=== PATIENT | female | born 1985 | race Two or more races ===

== ENCOUNTER 2023-05-10 14:38 | Outpatient (OUT) | payer OTHER, MEDICAID, SELFPAY ==
--- NOTE | 2023-05-10 14:47 | US_ITS ---
The [address] [address] Patient Name: JEANNIE JONES MRN: [id number] date: 1985 Sex: F Assigned Patient Location: US Current Patient Location: US Accession/Order Number: [id number] Exam Date: 05/10/2023 15:00 Report Date: 05/10/2023 16:07 At the request of: GAMALIEL CRESPO Procedure: US pelvis transvaginal EXAMINATION: US pelvis transvaginal HISTORY: Menorrhagia With Regular Cycle N92.0 COMPARISON: No relevant comparison available. FINDINGS: The uterus is normal in size, contour and echotexture measuring 8.8 x 5.3 x 4.0 cm. No focal mass The endometrium measures 7.1 mm, normal. The right ovary measures 3.2 x 3.3 x 1.9 cm. Area of anechoic echogenicity measuring 2.0 cm, simple cyst. Normal color and Doppler flow The left ovary measures 2.5 x 1.8 x 1.5 cm. Normal color and Doppler flow No free fluid US/US pelvis transvaginal IMPRESSION: No acute abnormality. Electronically authenticated by: RAMA LUNA Date: 05/10/2023 16:07
[2023-05-10 15:30] LABS: Basophils Percent Auto 0.6 % (0.2-2.0); Eosinophils Absolute Auto 0.1 10^3/uL (0.0-0.7); Hematocrit 39.1 % (36.0-48.0); Hemoglobin 12.7 g/dL (12.0-16.0); Immature Granulocytes Abs Auto 0.01 10^3/uL (0.00-0.03); Immature Granulocytes Pct Auto 0.1 % (0.0-0.5); Lymphocytes Absolute Auto 2.2 10^3/uL (1.2-3.8); Mean Corpuscular HGB Conc 32.5 g/dL (29.9-35.2); Mean Corpuscular Hemoglobin 29.7 pg (26.7-34.0); Mean Corpuscular Volume 91.6 fL (81.0-99.0); Mean Platelet Volume 8.9 fL (9.5-13.5); Monocytes Absolute Auto 0.5 10^3/uL (0.3-0.8); Monocytes Percent Auto 6.5 % (1.7-12.0); Neutrophils Absolute Auto 4.4 10^3/uL (1.4-6.5); Neutrophils Percent Auto 60.8 % (43.0-75.0); Platelet Count 477 10^3/uL (150-450); Red Blood Count 4.27 10^6/uL (4.20-5.40); Red Cell Distribution Width 14.1 % (11.0-15.0); White Blood Count 7.2 10^3/uL (4.0-11.0)
[2023-05-10 15:52] LABS: INR 0.95; Partial Thromboplastin Time 27.3 sec (22.3-36.2); Prothrombin Time 10.1 sec (9.0-11.6)
[2023-05-10 16:05] LABS: Estimated Average Glucose 111 mg/dL; Glycohemoglobin A1C 5.5 % (4.5-6.2)
[2023-05-10 16:14] LABS: Free T4 0.91 ng/dL (0.76-1.46)
[2023-05-10 16:20] LABS: HCG Quantitative <1 mIU/mL; Thyroid Stimulating Hormone 0.688 uIU/mL (0.358-3.740)
== END 2023-05-10 14:39 | disposition home or self-care (01) ==
PROVIDERS: Visit Provider Obstetrics & Gynecology
DX: N92.0 Excessive and frequent menstruation with regular cycle (principal)
CPT/HCPCS: 36415; 76830; 83036; 84439; 84443; 84702; 85025; 85610; 85730

== ENCOUNTER 2024-12-25 07:44 | Outpatient (OUT) | payer OTHER, SELFPAY ==
--- OUTSIDE RECORDS SUMMARY | 2024-12-25 07:50 | XMS_ITS | CCD ---
Author Organization [facility] CliniSypr Care Team Providers Care Visual And Stock Associate Name Role Phone AMI LOPEZ Admitting Unavailable AMI LOPEZ Attending Unavailable SELF, REFERRED Referring Unavailable SELF, REFERRED Primary Care Unavailable MISC, DOCTOR Attending Unavailable MISC, DOCTOR Admitting Unavailable DIVINE COLVIN Attending Unavailable CHERIE, GAMALIEL Attending Unavailable HOU, STEVIE Alfaro Attending Unavailable CHERIE, GAMALIEL Attending Unavailable KARLEE, MAKAYLA F Attending Unavailable KARLEE, MAKAYLA F Attending Unavailable HOU, STEVIE Alfaro Attending Unavailable KARLEE, MAKAYLA Thornton Attending Unavailable KARLEE, MAKAYLA Thornton Attending Unavailable TOMAS, NICHOLAS Fletcher Attending Unavailable TOMAS, NICHOLAS Fletcher Referring Unavailable WONDERLY, MAKAYLA B Primary Care Unavailable TOMAS, NICHOLAS Fletcher Admitting Unavailable TOMAS, NICHOLAS Fletcher Attending Unavailable WONDERLY, MAKAYLA B Referring Unavailable WONDERLY, MAKAYLA B Primary Care Unavailable NIENBERG, JOSE RAUL Anguiano Attending Unavailable KARLEE, MAKAYLA Referring Unavailable KARLEE, MKAAYLA Primary Care Unavailable TOMAS, NICHOLAS Fletcher Attending Unavailable TOMAS, NICHOLAS Fletcher Referring Unavailable KARLEE, MAKAYLA Primary Care Unavailable TOMAS, NICHOLAS Fletcher Admitting Unavailable TOMAS, NICHOLAS Fletcher Attending Unavailable KARLEE, MAKAYLA Referring Unavailable KARLEE, MAKAYLA Primary Care Unavailable KARLEE, [facility] Primary Care Unavailable YANA PATIÑO Attending Unavailable NIENBERGJOSE RAUL Attending Unavailable WONDERLY, MAKAYLA B Referring Unavailable WONDERLY, MAKAYLA B Primary Care Unavailable KARLEE, [facility] Primary Care Unavailable TERE MOFFETT Attending Unavailable KOFFI FUENTES Attending UnavailKOFFI Estrada Referring Unavaildelilah WILLETT MAKAYLA Primary Care Unavailable Makayla Fischer MD Primary Care Provider Makayla Willett MD Primary Care Provider Allergies Allergy Classification Reported Allergen(s) Allergy Type Date of Onset Reaction(s) Facility (2 sources) Penicillins; Translations: [PENICILLINS] Drug allergy (disorder) 7 [facility] Repository (3 sources) Penicillins Propensity to adverse reactions to drug 7 [facility] [employer] [facility] Medications Current Medications Medication Drug Class(es) Dates Sig (Normalized) Sig (Original) cetirizine hydrochloride 10 mg chewable tablet (2 sources) Histamine-1 Receptor Antagonist cetirizine (ZyrTEC) 10 MG chewable tablet Chew 1 tablet (10 mg total) and swallow in the morning. Active naproxen 500 mg delayed release oral tablet (3 sources) Nonsteroidal Anti-inflammatory Drug take 1 tablet by mouth in the morning, then take 1 tablet by mouth at mealtime naproxen (EC NAPROSYN) 500 mg EC tablet Take 1 tablet (500 mg total) by mouth in the morning and 1 tablet (500 mg total) in the evening. Take with meals. Active ondansetron 4 mg disintegrating oral tablet (2 sources) Serotonin-3 Receptor Antagonist Start: 05-21-2023 take 1 tablet by mouth every eight hours as needed for nausea ondansetron ODT (ZOFRAN ODT) 4 mg disintegrating tablet Dissolve 1 tablet (4 mg total) on tongue every 8 (eight) hours as needed for nausea for up to 10 doses. 10 tablet 05/21/2023 Active Problems Active Problems Problem Classification Problem Date Documented Da te Episodic/Chronic Cardiac dysrhythmias (3 sources) Palpitations; Translations: [Palpitations] 10-29-2016 Episodic Conditions associated with dizziness or vertigo (3 sources) Dizziness; Translations: [Dizziness and giddiness] 10-29-2016 Episodic Nonspecific chest pain (3 sources) Chest pain; Translations: [Chest pain, unspecified] 10-29-2016 Episodic Other upper respiratory disease (1 source) Pain in throat Onset: 02-25-2024 Episodic Other upper respiratory infections (1 source) Acute upper respiratory infection, unspecified; Translations: [Acute upper respiratory infection, unspecified] Onset: 02-25-2024 Episodic Spondylosis; intervertebral disc disorders; other back problems (9 sources) Spondylosis without myelopathy or radiculopathy, thoracic region; Translations: [Thoracic spondylosis without myelopathy] Onset: 03-05-2023 04-23-2023 Chronic Spondylosis; intervertebral disc disorders; other back problems (1 source) Backache Onset: 01-16-2024 Episodic Unclassified (1 source) Earache Onset: 02-25-2024 Past or Other Problems Problem Classification Problem Date Documented Da te Episodic/Chronic Mood disorders (3 sources) Mood disorders Onset: 07-26-2021 07-26-2021 Nausea and vomiting (1 source) Vomiting Onset: 05-21-2023 Episodic Noninfectious gastroenteritis (1 source) Noninfective gastroenteritis and colitis, unspecified; Translations: [Noninfective gastroenteritis and colitis, unspecified] Onset: 05-21-2023 Episodic Other circulatory disease (3 sources) Orthostatic hypotension; Translations: [Orthostatic hypotension] Onset: 12-15-2019 12-15-2019 Episodic Other gastrointestinal disorders (1 source) Diarrhea Onset: 05-21-2023 Episodic Syncope (3 sources) Vasovagal syncope; Translations: [Syncope and collapse] Onset: 12-15-2019 12-15-2019 Episodic Results Test Name Value Interpretation Reference Range Facil ity RAPID STREP SCR NURSINGon S. pyogenes Ag EIA Ql (Throat) Negative Normal NEG [facility] Comment on above: Performed By: #### C BCA, CMP, 3040-3, 15548-9 #### [facility] ([id number]) [address] [place] [address], [place] [address] SARS/FLU A+B/RSV by NAAT/Mol ecularon 02-25-2024 SARS/FLU A+B/RSV by NAAT/Molecular FLU A PCR Negative (qualifier value) FLU B PCR Negative (qualifier value) RSV by PCR Negative (qualifier value) SARS CoV 2 Not detected (qualifier value) NOTE The Xpert Xpress SARS-CoV-2/Flu/RSV Plus test is a rapid, multiplexed real-time RT-PCR test intended for the simultaneous qualitative detection and differentiation of SARS-CoV-2, influenza A, influenza B and respiratory syncytial virus (RSV) viral RNA from individuals suspected of respiratory viral infection consistent with COVID-19 by their healthcare provider. This test has not been validated in asymptomatic patients. The Xpert Xpress SARS-CoV-2 test is intended for use by qualified and trained operators who are performing tests using either [employer] or [employer] systems and is limited to laboratories that meet the CLIA requirements to perform high and moderate complexity tests. The Xpert Xpress SARS-CoV-2/Flu/RSV Plus is only for use under the Food and Drug Administration's Emergency Use Authorization. Results are for the simultaneous detection and differentiation of SARS-CoV-2, influenza A, influenza B and RSV nucleic acids in clinical specimens. SARS-CoV-2, influenza A, influenza B and RSV RNA identified by this test are generally detectable in upper respiratory samples during the acute phase of infection. Positive results are indicative of the presence of the identified virus, but do not rule out bacterial infection or co-infection with other pathogens not detected by this test. Clinical correlation with patient history and other diagnostic information is necessary to determine patient infection status. The agent detected may not be the definite cause of disease. Negative results do not preclude SARS-CoV-2, influenza A, influenza B and RSV infection and should not be used as the sole basis for treatment or other patient management decisions. Negative results must be combined with clinical observations, patient history and epidemiological information. An Invalid result may occur with specimen-associated inhibition unable to be resolved with specimen repeat. Fact Sheet for Healthcare Providers: https://www.fda.gov/m edia/166507/download Fact Sheet for Patients: https://www.fda.gov/m edia/371194/download Normal [facility] Comment on above: Performed By: #### C OVFLR #### [facility] ([id number]) [address] [place] [address] 82342 CBC AND AUTO DIFFon 05-21-19 24 ABSOLUTE BASOPHIL 0.0 X10E9/L Normal 0.0-0.2 [facility] Comment on above: Performed By: #### C BCA, CMP, 3040-3, 89398-0 #### [facility] ([id number]) [address] [place] [address] 29674 ABSOLUTE NEUTROPHIL 3.6 X10E9/L Normal 1.5-6.6 [facility] Comment on above: Performed By: #### C BCA, CMP, 3040-3, 16117-4 #### [facility] ([id number]) [address] [place] [address] 96546 Basophils/100 WBC (Bld) 0.3 % Normal [facility] Comment on above: Performed By: #### C CARLEEN CMP, 3039-05, #### [facility] ([id number]) [address] [place] [address] 74551 Eosinophils (Bld) [#/Vol] 0.1 10*3/uL Normal 0.0-0.4 [facility] Comment on above: Performed By: #### C CARLEEN, CMP, 3039-05, #### [facility] ([id number]) [address] [place] [address] 35063 Eosinophils/100 WBC (Bld) 1.4 % Normal [facility] Comment on above: Performed By: #### Kelly DURANT CMP, 3039-05, #### [facility] ([id number]) [address] [place] [address] 02169 Erythrocyte distribution width (RBC) [Ratio] 14.8 % Normal 11.5-15.0 [facility] Comment on above: Performed By: #### Kelly DURANT CMP, 3039-05, #### [facility] ([id number]) [address] [place] [address] 53193 Hematocrit (Bld) [Volume fraction] 39.5 % Normal 35-47 [facility] Comment on above: Performed By: #### C CARLEEN, CMP, 3039-05, #### [facility] ([id number]) [address] [place] [address] 58330 Hemoglobin (Bld) [Mass/Vol] 13.4 g/dL Normal 11.7-15.5 [facility] Comment on above: Performed By: #### C CARLEEN CMP, 3039-05, #### [facility] ([id number]) [address] [place] [address] Lymphocytes (Bld) [#/Vol] 1.1 10*3/uL Normal 1.0-3.5 [facility] Comment on above: Performed By: #### Kelly DURANT CMP, 3, #### [facility] ([id number]) [address] [place] [address] 12709 Lymphocytes/100 WBC (Bld) 21.3 % Normal [facility] Comment on above: Performed By: #### Kelly DURANT CMP, 3039-05, #### [facility] ([id number]) [address] [place] [address] 72501 MCH (RBC) [Entitic mass] 29.8 pg Normal 27-34 [facility] Comment on above: Performed By: #### Kelly DURANT CMP, 3039-05, #### [facility] ([id number]) [address] [place] [address] 56020 MCHC (RBC) [Mass/Vol] 33.9 g/dL Normal 32-36 [facility] Comment on above: Performed By: #### Kelly DURANT CMP, 3039-05, #### [facility] ([id number]) [address] [place] [address] 55782 MCV (RBC) [Entitic vol] 88 fL Normal 80-100 [facility] Comment on above: Performed By: #### Kelly DURANT, CMP, 3039-05, #### [facility] ([id number]) [address] [place] [address] 70622 Monocytes (Bld) [#/Vol] 0.4 10*3/uL Normal 0-0.9 [facility] Comment on above: Performed By: #### Kelly DURANT, CMP, 3039-05, #### [facility] ([id number]) [address] [place] [address] 98493 Monocytes/100 WBC (Bld) 7.6 % Normal [facility] Comment on above: Performed By: #### Kelly DURANT, CMP, 0-3, #### [facility] ([id number]) [address] [place] [address] 28762 Neutrophils/100 WBC (Bld) 69.4 % Normal [facility] Comment on above: Performed By: #### C CARLEEN, CMP, 3, #### [facility] ([id number]) [address] [place] [address] 79871 Platelet mean volume (Bld) [Entitic vol] 7.5 fL Normal 7-12 [facility] Comment on above: Performed By: #### Kelly DURANT, CMP, 3039-05, #### [facility] ([id number]) [address] [place] [address] 85686 Platelets (Bld) [#/Vol] 404 10*3/uL Normal 150-450 [facility] Comment on above: Performed By: #### Kelly DURANT, CMP, 3039-05, #### [facility] ([id number]) [address] [place] [address] 68711 RBC COUNT 4.50 X10E12/L Normal 3.80-5.20 [facility] Comment on above: Performed By: #### Kelly BCA, CMP, 3, #### [facility] ([id number]) [address] [place] [address] 01314 WBC (Bld) [#/Vol] 5.2 10*3/uL Normal 4.0-11.0 [facility] Comment on above: Performed By: #### Kelly DURANT, CMP, 3, #### [facility] ([id number]) [address] [place] [address] 67159 COMPREHENSIVE METABOLIC PANE Omar 05-21-2023 Albumin [Mass/Vol] 4.1 g/dL Normal 3.2-5.3 [facility] Comment on above: Performed By: #### C BCA, CMP, 3040-3, #### [facility] ([id number]) [address] [place] [address] 08145 ALP [Catalytic activity/Vol] 55 U/L Normal 39-130 [facility] Comment on above: Performed By: #### C BCA, CMP, 3040-3, #### [facility] ([id number]) [address] [place] [address] 33299 ALT [Catalytic activity/Vol] 23 U/L Normal 0-31 [facility] Comment on above: Performed By: #### C BCA, CMP, 03, #### [facility] ([id number]) [address] [place] [address] 16542 Anion gap [Moles/Vol] 6 mmol/L Normal 5-15 [facility] Comment on above: Performed By: #### C BCA, CMP, 3040-3, #### [facility] ([id number]) [address] [place] [address] 00335 AST [Catalytic activity/Vol] 22 U/L Normal 0-41 [facility] Comment on above: Performed By: #### C BCA, CMP, 30403, #### [facility] ([id number]) [address] [place] [address] 71867 Bilirubin [Mass/Vol] 0.7 mg/dL Normal 0.3-1.2 [facility] Comment on above: Performed By: #### C BCA, CMP, 3040-3, #### [facility] ([id number]) [address] [place] [address] 42807 Calcium [Mass/Vol] 8.4 mg/dL Low 8.5-10.5 [facility] Comment on above: Performed By: #### C TL DURANT, 3, 74169-2 #### [facility] ([id number]) [address] [place] [address] 78126 Chloride [Moles/Vol] 105 mmol/L Normal 98-109 [facility] Comment on above: Performed By: #### C TL DURANT, 3039-05, #### [facility] ([id number]) [address] [place] [address] 82159 CO2 [Moles/Vol] 24 mmol/L Normal 22-32 [facility] Comment on above: Performed By: #### C TL DURANT, 3039-05, #### [facility] ([id number]) [address] [place] [address] 00328 Creatinine [Mass/Vol] 0.47 mg/dL Normal 0.40-1.00 [facility] Comment on above: Result Comment: METH OD TRACEABLE TO IDMS STANDARD Performed By: #### C TL DURANT, 3039-05, 46749-9 #### [facility] ([id number]) [address] [place] [address] 63942 eGFR (CKD-EPI) NON-RACE DEPENDENT >90 Normal >59 [facility] Comment on above: Result Comment: Reported eGFR is based on the CKD-EPI 2020 equation that does not use a race coefficient. Performed By: #### C TL DURANT, 3039-05, 86617-4 #### [facility] ([id number]) [address] [place] [address] 61705 Glucose [Mass/Vol] 97 mg/dL Normal 65-99 [facility] Comment on above: Performed By: #### C BCA, CMP, 3040-3, 72780-3 #### [facility] ([id number]) [address] [place] [address] 14877 Potassium [Moles/Vol] 3.1 mmol/L Low 3.5-5.0 [facility] Comment on above: Performed By: #### C BCA, CMP, 3040-3, 01608-6 #### [facility] ([id number]) [address] [place] [address] 30476 Protein [Mass/Vol] 7.6 g/dL Normal 6.0-8.0 [facility] Comment on above: Performed By: #### C BCA, CMP, 03, 02899-5 #### [facility] ([id number]) [address] [place] [address] 38825 Sodium [Moles/Vol] 135 mmol/L Normal 134-146 [facility] Comment on above: Performed By: #### C BCA, CMP, 3040-3, 61093-1 #### [facility] ([id number]) [address] [place] [address] 69405 Urea nitrogen [Mass/Vol] 9 mg/dL Normal 5-23 [facility] Comment on above: Performed By: #### C BCA, CMP, 3040-3, 06795-6 #### [facility] ([id number]) [address] [place] [address] ABDOMEN AND PELVIS W CONT on 05-21-2023 CT ABDOMEN AND PELVIS W CONT CT ABDOMEN AND PELVIS W CONT CLINICAL INFORMATION: Abdominal pain, acute, nonlocalized COMPARISON: February 06, 2013 PROCEDURE: Routine CT abdomen and pelvis obtained after the uncomplicated intravenous administration of contrast material. Multiplanar reformats obtained from the axial data. Automated exposure control was utilized. FINDINGS: Lung bases show no acute findings No free air or free fluid Uterus and adnexa show no acute findings but not well assessed without oral contrast Appendix and terminal ileum appropriate Liver shows no acute findings Gallbladder wall appears mildly thickened which is nonspecific Spleen pancreas adrenal glands and kidneys grossly unremarkable within limitations of no oral contrast No evidence for small bowel obstruction IMPRESSION: No acute findings. If you have high clinical suspicion for occult bowel process in view of the nausea vomiting and diarrhea consider MR enterography and/or CT enterography, or GI consultation. All CT scans at this facility use dose modulation, iterative reconstruction, and/or weight based dosing when appropriate to reduce radiation dose to as low as reasonably achievable. Finalized by Norman Madden MD on 05/21/2023 6:46 PM Normal [facility] HCG ( test) Ql (U)o n 05-21-2023 Beta HCG ( test) Ql (U) Negative Normal NEG [facility] Comment on above: Performed By: #### 2 106-3 #### [facility] ([id number]) [address] [place] [address] 11193 LIPASEon 05-21-2023 Lipase [Catalytic activity/Vol] 33 U/L Normal 17-40 [facility] Comment on above: Performed By: #### C CARLEEN CMP, 3040-3, 86763-8 #### [facility] ([id number]) [address] [place] [address] 61635 Lactate (P lacho) [Moles/Vol]o n 05-21-2023 LACTATE W/REFLEX 0.9 mmol/L Normal 0.4-2.0 [facility] Comment on above: Result Comment: Result did not trigger repeat Lactate, re-order if needed. Performed By: #### 3 2133-1 #### [facility] ([id number]) [address] [place] [address] 62164 MAGNESIUMon 05-21-2023 Magnesium [Mass/Vol] 2.3 mg/dL Normal 1.8-2.6 [facility] Comment on above: Performed By: #### C BCA, CMP, 3040-3, 42651-7 #### [facility] ([id number]) [address] [place] [address] 91216 SARS/FLU A+B/RSV by NAAT/Mol [facility] 05-21-2023 SARS/FLU A+B/RSV by NAAT/Molecular FLU A PCR Negative (qualifier value) FLU B PCR Negative (qualifier value) RSV by PCR Negative (qualifier value) SARS CoV 2 Not detected (qualifier value) NOTE The Xpert Xpress SARS-CoV-2/Flu/RSV Plus test is a rapid, multiplexed real-time RT-PCR test intended for the simultaneous qualitative detection and differentiation of SARS-CoV-2, influenza A, influenza B and respiratory syncytial virus (RSV) viral RNA from individuals suspected of respiratory viral infection consistent with COVID-19 by their healthcare provider. This test has not been validated in asymptomatic patients. The Xpert Xpress SARS-CoV-2 test is intended for use by qualified and trained operators who are performing tests using either [employer] or [employer] systems and is limited to laboratories that meet the CLIA requirements to perform high and moderate complexity tests. The Xpert Xpress SARS-CoV-2/Flu/RSV Plus is only for use under the Food and Drug Administration's Emergency Use Authorization. Results are for the simultaneous detection and differentiation of SARS-CoV-2, influenza A, influenza B and RSV nucleic acids in clinical specimens. SARS-CoV-2, influenza A, influenza B and RSV RNA identified by this test are generally detectable in upper respiratory samples during the acute phase of infection. Positive results are indicative of the presence of the identified virus, but do not rule out bacterial infection or co-infection with other pathogens not detected by this test. Clinical correlation with patient history and other diagnostic information is necessary to determine patient infection status. The agent detected may not be the definite cause of disease. Negative results do not preclude SARS-CoV-2, influenza A, influenza B and RSV infection and should not be used as the sole basis for treatment or other patient management decisions. Negative results must be combined with clinical observations, patient history and epidemiological information. An Invalid result may occur with specimen-associated inhibition unable to be resolved with specimen repeat. Fact Sheet for Healthcare Providers: https://www.fda.gov/m edia/369078/download Fact Sheet for Patients: https://www.fda.gov/m edia/763560/download [facility] Comment on above: Performed By: #### C OVFLR #### [facility] ([id number]) [address] [place] [address], [place] [address] URN MACROSCOPIC NURon 2023 BILIRUBIN EVY Negative Normal NEG [facility] Comment on above: Performed By: #### N UM #### [facility] ([id number]) [address] [place] [address] [place] [address] BLOOD/HGB EVY Small Abnormal NEG [facility] Comment on above: Performed By: #### N UM #### [facility] ([id number]) [address] [place] [address] [place] [address] GLUCOSE EVY Negative Normal NEG [facility] Comment on above: Performed By: #### N UM #### [facility] ([id number]) [address] [place] [address] [place] [address] KETONES EVY Negative Normal NEG [facility] Comment on above: Performed By: #### N UM #### [facility] ([id number]) [address] [place] [address] [place] [address] LEUKOCYTE ESTERASE EVY Negative Normal NEG [facility] Comment on above: Performed By: #### N UM #### [facility] ([id number]) [address] [place] [address] [place] [address] NITRITE EVY Negative Normal NEG [facility] Comment on above: Performed By: #### N UM #### [facility] ([id number]) [address] [place] [address] [place] [address] PH EVY 6.0 Normal 5.0-8.5 [facility] Comment on above: Performed By: #### N UM #### [facility] ([id number]) [address] [place] [address], [place] [address] PROTEIN EVY Negative Normal NEG [facility] Comment on above: Performed By: #### N UM #### [facility] ([id number]) [address] [facility], [place] [address] SPECIFIC GRAVITY EVY 1.010 Normal 1.003-1.035 [facility] Comment on above: Performed By: #### N UM #### [facility] ([id number]) [address] [facility], [place] [address] UROBILINOGEN EVY 2.0 eu/dL High <1.1 [facility] Comment on above: Performed By: #### N UM #### [facility] ([id number]) [address] [facility], [place] [address] MR THORACIC SPINE WO CONTRAS Ton 01-21-2023 MR THORACIC SPINE WO CONTRAST EXAMINATION: MR THORACIC SPINE WO CONTRAST HISTORY: Thoracic pain COMPARISON: Thoracic spine radiographs December 31, 2022 TECHNIQUE: Multiplanar multisequence MRI of the thoracic spine was performed Without contrast. FINDINGS: The thoracic spinal cord is normal in signal and morphology. No focal cord signal abnormality. Mild levoscoliosis. The vertebral body heights are well maintained. No aggressive bone marrow signal abnormality. No significant disc bulge, spinal canal stenosis or neuroforaminal stenosis. Visualized paravertebral soft tissues are grossly unremarkable. The gallbladder is filled with gallstones. IMPRESSION: No significant disc bulge. No high-grade neural foraminal or spinal canal stenosis. Normal signal and morphology of the thoracic spinal cord. Cholelithiasis. ELECTRONICALLY SIGNED BY: Gadiel Dominique, DO Normal Not Available *RAPID FLU AANDB BY BOBBY Yan 05-24-2019 *RAPID FLU AANDB BY MOLECULAR Clinical Report: (D) Specimen: NASAL SWAB Collected: 05/24/2019 09:24 Status: Final Last Updated: 05/24/2019 09:50 FLUA RNA (Final) Negative FLUB RNA (Final) Positive for Influenza B Normal [facility] Comment on above: Performed By: #### 3 1018 #### [facility] [address] [place] [address], [facility] CBC W/DIFFon 05-24-2019 ABS BASOPHILS 0.0 10*3/uL Normal 0.0-0.2 [facility] Comment on above: Performed By: #### 5 0103 #### [facility] [address] [place] [address], [facility] ABS IMM GRANS 0.0 10*3/uL Normal 0.0-0.2 The [facility] Comment on above: Performed By: #### 5 0103 #### [facility] [address] [place] [address], [facility] ABS NEUTROPHILS 6.1 10*3/uL Normal 1.6-7.6 The [facility] Comment on above: Performed By: #### 5 0103 #### [facility] [address] [place] [address], [facility] Basophils/100 WBC (Bld) 0.2 % Normal 0.0-1.0 [facility] Comment on above: Performed By: #### 5 0103 #### [facility] [address] [place] [address], [facility] Eosinophils (Bld) [#/Vol] 0.0 10*3/uL Normal 0.0-0.5 [facility] Comment on above: Performed By: #### 5 0103 #### [facility] [address] [place] [address], [facility] Eosinophils/100 WBC (Bld) 0.0 % Normal 0.0-6.0 [facility] Comment on above: Performed By: #### 5 0103 #### [facility] [address] Erythrocyte distribution width (RBC) [Ratio] 13.6 % Normal 11.5-15.0 [facility] Comment on above: Performed By: #### 5 0103 #### [facility] [address] [place] [address], [facility] Hematocrit (Bld) [Volume fraction] 38.6 % Normal 36.0-45.0 [facility] Comment on above: Performed By: #### 5 0103 #### [facility] [address] [place] [address], [facility] Hemoglobin (Bld) [Mass/Vol] 12.7 g/dL Normal 12.0-15.0 [facility] Comment on above: Performed By: #### 5 3 #### [facility] [address] [place] [address], [facility] IMMATURE GRANS 0.2 % Normal 0.0-1.0 The [facility] Comment on above: Performed By: #### 3 #### [facility] [address] [place] [address], [facility] Lymphocytes (Bld) [#/Vol] 1.4 10*3/uL Normal 1.2-4.0 [facility] Comment on above: Performed By: #### 5 3 #### [facility] [address] Lymphocytes/100 WBC (Bld) 17.0 % Low 20.0-45.0 [facility] Comment on above: Performed By: #### 5 3 #### [facility] [address] [place] [address], [facility] MCH (RBC) [Entitic mass] 29.3 pg Normal 27.0-33.0 [facility] Comment on above: Performed By: #### 5 3 #### [facility] [address] [place] [address], [facility] MCHC (RBC) [Mass/Vol] 32.9 g/dL Normal 32.0-35.0 [facility] Comment on above: Performed By: #### 5 3 #### [facility] [address] [place] [address], [facility] MCV (RBC) [Entitic vol] 88.9 fL Normal 82.0-98.0 [facility] Comment on above: Performed By: #### 5 0103 #### [facility] [address] [place] [address], [facility] Monocytes (Bld) [#/Vol] 0.5 10*3/uL Normal 0.1-1.0 [facility] Comment on above: Performed By: #### 102 #### [facility] [address] [place] [address], [facility] MONOS 6.6 % Normal 5.0-12.0 [facility] Comment on above: Performed By: #### 102 #### [facility] [address] [facility] [place] [address], [facility] Neutrophils/100 WBC (Bld) 76.0 % High 40.0-72.0 [facility] Comment on above: Performed By: #### 102 #### [facility] [address] [place] [address], [facility] Nucleated RBC/100 WBC (Bld) [Ratio] 0 % Normal 0-0 [facility] Comment on above: Performed By: #### 102 #### [facility] [address] [place] [address], [facility] PLAT CNT 314 10*3/uL Normal 150-400 The [facility] Comment on above: Performed By: #### 102 #### [facility] [address] [place] [address], [facility] RBC (Bld) [#/Vol] 4.34 10*6/uL Normal 3.80-5.00 The [facility] Comment on above: Performed By: #### 102 #### [facility] [address] [facility] [place] [address], [facility] WBC (Bld) [#/Vol] 8.02 10*3/uL Normal 4.00-10.60 The [facility] Comment on above: Performed By: #### 102 #### [facility] [address] [place] [address], [facility] COMP METABOLIC PANELon 05-24 Albumin [Mass/Vol] 4.3 g/dL Normal 3.5-5.7 [facility] Comment on above: Performed By: #### 0 0121 #### [facility] [address] [place] [address], [facility] ALKALINE PHOSPH 39 IU/L Normal 34-104 The [facility] Comment on above: Performed By: #### 0 0121 #### [facility] [address] [place] [address], [place] ALT [Catalytic activity/Vol] 22 U/L Normal 7-52 [facility] Comment on above: Performed By: #### 0 0121 #### [facility] [address] [place] [address], [facility] AST [Catalytic activity/Vol] 20 U/L Normal 13-39 [facility] Comment on above: Performed By: #### 0 0121 #### [facility] [address] [place] [address], [place] Bilirubin [Mass/Vol] 0.6 mg/dL Normal 0.3-1.0 [facility] Comment on above: Performed By: #### 0 0121 #### [facility] [address] [place] [address], [facility] Calcium [Mass/Vol] 9.1 mg/dL Normal 8.6-10.3 The [facility] Comment on above: Performed By: #### 0 0121 #### [facility] [address] [place] [address], [place] Chloride [Moles/Vol] 104 mmol/L Normal 98-107 [facility] Comment on above: Performed By: #### 0 0121 #### [facility] [address] [place] [address], [place] CO2 [Moles/Vol] 25 mmol/L Normal 21-31 The [facility] Comment on above: Performed By: #### 0 0121 #### [facility] [address] [place] [address], [facility] Creatinine [Mass/Vol] 0.58 mg/dL Low 0.60-1.20 [facility] Comment on above: Performed By: #### 0 0121 #### [facility] [address] [place] [address], [facility] GFR/1.73 sq M predicted among blacks MDRD (S/P/Bld) [Vol rate/Area] mL/min/{1.73_m2} Normal >60 [facility] Comment on above: Performed By: #### 0 0121 #### [facility] [address] [place] [address], [facility] GFR/1.73 sq M predicted among non-blacks MDRD (S/P/Bld) [Vol rate/Area] mL/min/{1.73_m2} Normal >60 [facility] Comment on above: Performed By: #### 0 0121 #### [facility] [address] [place] [address], [place] Glucose [Mass/Vol] 96 mg/dL Normal 70-100 The [facility] Comment on above: Performed By: #### 0 0121 #### [facility] [address] [place] [address], [facility] Potassium [Moles/Vol] 3.7 mmol/L Normal 3.5-5.1 [facility] Comment on above: Performed By: #### 0 0121 #### [facility] [address] [place] [address], [facility] Protein [Mass/Vol] 7.0 g/dL Normal 6.0-8.3 The [facility] Comment on above: Performed By: #### 0 0121 #### [facility] [address] [facility] [place] [address], [facility] Sodium [Moles/Vol] 138 mmol/L Normal 136-145 [facility] Comment on above: Performed By: #### 0 0121 #### [facility] [address] [facility] [place] [address], [facility] Urea nitrogen [Mass/Vol] 6 mg/dL Low 7-25 [facility] Comment on above: Performed By: #### 0 0121 #### [facility] [address] [place] [address], [facility] CT BRAIN WO CONTRASTon 05-24 CT BRAIN WO CONTRAST [facility] Department of Radiology [address] [place] [phone] Patient Name: JEANNIE JONES : 1985 Sex: F Age: Race: Other Pt. Location: [facility] Patient Status: E Ordered Date: 05/24/2019 9:20:00 AM Completed Date: 05/24/2019 10:10 AM Requesting Provider: AMI LOPEZ Attending Provider: AMI LOPEZ Report Copy To: Signs & Symptoms: Dizziness(vertigo) History: See Comments Comments: Bleed Exam: CT BRAIN WO CONTRAST CT BRAIN WO CONTRAST 05/24/2019 10:10 AM CLINICAL INDICATIONS: Dizziness(vertigo) TECHNOLOGIST COMMENTS: Patient has weakness and vertigo. Tested positive for flu QUESTION FOR THE RADIOLOGIST: Jose PROTOCOL: Axial CT images of the head were obtained without IV contrast. TECHNIQUE: Multidetector CT axial slices of the brain without IV contrast. Multiplanar reformats were performed and viewed on a separate workstation and reviewed to further define anatomy and possible pathology. COMPARISON: None. FINDINGS: No shift of midline structures, intracranial hemorrhage, or mass effect. Delaney-white differentiation intact. Size and configuration of the ventricles and basal cisterns are normal. No acute ischemia. Calvarium, skull base, bony orbit are normal. Mastoids nonopacified. Mild mucosal thickening in the ethmoid cells. Remaining visualized paranasal sinuses unremarkable. IMPRESSION: * No acute intracranial abnormality. * Mild mucosal disease in the ethmoids. All CT scans at this facility use dose modulation, iterative reconstruction, and/or weight based dosing when appropriate to reduce radiation dose to as low as reasonably achievable Approved by:Diane Barreto05/24/2019 10:19 AM. I, Ida Hoskins,have reviewed the imagers and reports Electronically signed: Ida Hoskins. Transcribed by: [email or web address], User Resident: DIANE [email or web address] Electronically Signed by: IDA HOSKINS @ 05/24/2019 10:27 AM I personally read this/these film(s) with this resident Normal [facility] Comment on above: Order Comment: Bleed CTA HEADon 05-24-2019 CTA HEAD [facility] Department of Radiology [address] [place] [phone] Patient Name: JEANNIE JONES : 1985 Sex: F Age: Race: Other Pt. Location: [facility] Patient Status: E Ordered Date: 05/24/2019 9:10:00 AM Completed Date: 05/24/2019 10:10 AM Requesting Provider: AMI LOPEZ Attending Provider: AMI LOPEZ Report Copy To: Signs & Symptoms: Dizziness(vertigo) History: See Comments Comments: Bleed Exam: CTA HEAD CTA HEAD 05/24/2019 10:10 AM CLINICAL INDICATIONS: Dizziness(vertigo) TECHNOLOGIST COMMENTS: Patient has weakness and vertigo. Tested positive for flu QUESTION FOR THE RADIOLOGIST: Bleed PROTOCOL: Axial CT angiography images were obtained with IV contrast. CONTRAST: Contrast: OMNIPAQUE 350 (LOCM), 100 milliliter, Intravenous TECHNIQUE: Multi-detector CT angiography axial slices of the head were obtained before and during intravenous administration of IV contrast material. Sagittal, coronal, and 3-D reconstructions were performed and viewed on a separate workstation. COMPARISON: None. FINDINGS: Intracranial portions of the vertebral arteries are widely patent. Bilateral PICA originating from bilateral vertebral arteries. The 2 vertebral arteries join to become basilar artery giving off AICA, superior cerebellar arteries, and terminate as bilateral fox raiser. Bilateral diminutive posterior communicating arteries are seen. Bilateral MCAs and their branches are patent. Bilateral ACAs and anterior communicating artery are patent. Cavernous ICAs are symmetric and patent. No evidence of dissection, aneurysm, or stenosis. The deep venous system and dural venous systems are patent. IMPRESSION: Normal CTA head. Specifically, no large vessel occlusion or cerebral aneurysm. All CT scans at this facility use dose modulation, iterative reconstruction, and/or weight based dosing when appropriate to reduce radiation dose to as low as reasonably achievable Approved by:Diane Barreto05/24/2019 10:24 AM. I, Ida Hoskins,have reviewed the imagers and reports Electronically signed: Ida Hoskins. Transcribed by: [email or web address], User Resident: DIANE ZUNIGA Electronically Signed by: IDA HOSKINS @ 05/24/2019 10:32 AM I personally read this/these film(s) with this resident Normal [facility] Comment on above: Order Comment: Bleed SERUM TESTon 05-24 TEST Negative Normal [facility] Comment on above: Performed By: #### 4 [id number] #### [place] [address] Vital Signs Date Time Vital Sign Value Performing Clinician Tulio platt 03-05-2024 08:17-0500 Body height 157.5 cm Jose Raul Orozco PA Work Phone: [facility] [employer] [facility] 03-05-2024 08:17-0500 Body mass index (BMI) [Ratio] 24.87 kg/m2 Jose Raul Orozco PA Work Phone: [facility] [employer] [facility] 03-05-2024 08:17-0500 Body weight 61.69 kg Jose [facility] 03-05-2024 08:17-0500 Diastolic blood pressure 36 mm[Hg] Jose Raul [facility]rozco [facility] 03-05-2024 08:17-0500 Heart rate 73 /min Jose Raul Nienberg [facility] 03-05-2024 08:17-0500 Respiratory rate 18 /min Jose Raul Gargenberg PA [facility] 03-05-2024 08:17-0500 SaO2% (BldA) [Mass fraction] 99 % Jose Raul Orozco PA [facility] [place] [facility] 03-05-2024 08:17-0500 Systolic blood pressure 129 mm[Hg] Jose Raul Nienberg PA [facility]: [facility] 01-16-2024 14:32-0400 Body height 157.5 cm Jose Raul Orozco PA [facility] [place] [facility] 01-16-2024 14:32-0400 Body mass index (BMI) [Ratio] 24.87 kg/m2 Jose Raul Orozco PA [facility] 01-16-2024 14:32-0400 Body weight 61.69 kg Jose Raul Nienberg PA Work Phone: [facility] [employer] [facility] 01-16-2024 14:32-0400 Diastolic blood pressure 67 mm[Hg] Jose Raul Nienberg PA Work Phone: [facility] [employer] [facility] 01-16-2024 14:32-0400 Heart rate 78 /min Jose Raul Nienberg PA Work Phone: [facility] [employer] [facility] 01-16-2024 14:32-0400 Respiratory rate 18 /min Jose Raul Nienberg PA Work Phone: [facility] [employer] 01-16-2024 14:32-0400 SaO2% (BldA) [Mass fraction] 100 % Jose Raul Nienberg PA Work Phone: [facility] [employer] [facility] 01-16-2024 14:32-0400 Systolic blood pressure 107 mm[Hg] Jose Raul Nienberg PA Work Phone: [facility] [employer] [facility] 04-23-2023 11:06-0500 Body height 157.5 cm Jose Raul Nienberg PA Work Phone: [facility] 04-23-2023 11:06-0500 Body mass index (BMI) [Ratio] 22.68 kg/m2 Jose Raul Nienberg PA Work Phone: [facility] [employer] [facility] 04-23-2023 11:06-0500 Body weight 56.25 kg Jose Raul Nienberg PA Work Phone: [facility] [employer] [facility] 04-23-2023 11:06-0500 Diastolic blood pressure 62 mm[Hg] Jose Raul Nienberg PA Work Phone: [facility] 04-23-2023 11:06-0500 Heart rate 86 /min Jose Raul Nienberg PA Work Phone: [facility] [employer] [facility] 04-23-2023 11:06-0500 Respiratory rate 18 /min Jose Raul Nienberg PA Work Phone: [facility] [employer] [facility] 04-23-2023 11:06-0500 SaO2% (BldA) [Mass fraction] 99 % Jose Raul GARCIA Work Phone: [facility] 04-23-2023 11:06-0500 Systolic blood pressure 102 mm[Hg] Jose Raul GARCIA Work Phone: [facility] Encounters Encounter Date Encounter Type Care Provider Facility Start: 03-05-2024 End: 03-05-2024 Office outpatient visit 15 minutes Jose Raul GARCIA Work Phone: [facility] Comment on above: Thoracic spondylosis without myelopathy (Primary Dx) Start: 02-25-2024 End: 02-25-2024 Emergency department patient visit [facility] Start: 02-07-2024 End: 02-07-2024 ambulatory NICHOLAS Fletcher TOMAS [facility] Start: 01-16-2024 End: 01-16-2024 Office outpatient visit 15 minutes Jose Raul GARCIA Work Phone: [facility] Comment on above: Thoracic spondylosis without myelopathy (Primary Dx) Start: 01-16-2024 End: 01-16-2024 ambulatory MAKAYLA WILLETT Not Available Start: 01-07-2024 End: 01-07-2024 ambulatory MAKAYLA WILLETT Not Available Start: 12-07-2023 End: 12-07-2023 ambulatory STEVIE HOU Not Available Start: 07-29-2023 End: 07-29-2023 ambulatory MAKAYLA WILLETT Not Available Start: 06-18-2023 End: 06-18-2023 ambulatory DIVINE COLVIN Not Available Start: 06-12-2023 End: 06-12-2023 ambulatory GAMAILEL CRESPO Not Available Start: 05-21-2023 End: 05-22-2023 Emergency department patient visit KOFFI CMLIN [facility] Start: 05-21-2023 End: 05-21-2023 [facility] Start: 05-21-2023 End: 05-21-2023 ambulatory STEVIE HOU Not Available Start: 05-07-2023 End: 05-07-2023 ambulatory GAMALIEL CRESPO Not Available Start: 05-07-2023 End: 05-07-2023 ambulatory DIVINE COLVIN Not Available Start: 04-23-2023 End: 04-23-2023 Office outpatient visit 15 minutes Jose Raul GARCIA Work Phone: [facility] Comment on above: Thoracic spondylosis without myelopathy (Primary Dx) Start: 04-23-2023 End: 04-23-2023 ambulatory JOSE RAUL OROZCO [facility] Start: 04-05-2023 End: 04-05-2023 ambulatory NICHOLAS TOMAS [facility] Start: 02-28-2023 End: 02-28-2023 ambulatory MAKAYLA WILLETT Not Available Start: 02-18-2020 End: 02-18-2020 Patient encounter procedure [facility] Facility: Start: 05-24-2019 End: 05-24-2019 Emergency department patient visit AMI LOPEZ Facility:[facility] Procedures Date Procedure Procedure Detail Performing Clinician Start: 11-29-2022 Microscopic observat ion [Identifier] in Cervix by Cyto stain Jose Raul GARCIA Work Phone: Start: 07-26-2021 Adult depression scr eening assessment Jose Raul GARCIA Work Phone: Plan of Treatment Date Care Activity Detail Author Start: 11-29-2025 Screening for malign ant neoplasm of cervix Pap Smear [facility] Start: 03-05-2025 Adult BMI Screening Adult BMI Screen ing [facility] Start: 03-05-2025 Tobacco Screening Tobacco Screening [facility] Start: 01-15-2025 Adult BMI Screening Adult BMI Screen ing [facility] Start: 01-15-2025 Tobacco Screening Tobacco Screening [facility] Start: 04-23-2024 Adult BMI Screening Adult BMI Screen ing [facility] Start: 04-23-2024 Tobacco Screening Tobacco Screening [facility] Start: 03-20-2024 End: 03-20-2024 Patient encounter procedure 03/20/2024 11:00 AM EST Office Visit [facility] [address] [place] [phone] YeagerVeronika joyce, DENTAL RECEPTIONIST-NUTRITION SERVICES ASSOCIATE [address] [place] [address], [facility] [place] [phone] [facility] Start: 03-05-2024 End: 03-05-2024 Patient encounter procedure 03/05/2024 8:15 AM EST Office Visit [facility] [address] [place] [phone] Jose Raul Orozco PA [address] [place], [place] [phone] [facility] Start: 02-07-2024 End: 02-07-2024 Admission to same day surgery center 02/07/2024 3:15 PM EST - 02/07/2024 3:23 PM EST Surgery [facility] [address] [place] [phone] Nicholas Tomas MD [address] [facility], [place] [phone] INJECTION BLOCK NERVE MEDIAL BRANCH: bilat T 3/4, 4/5 [18623 (CPT )] [facility] Comment on above: INJECTION BLOCK NERV E MEDIAL BRANCH: bilat T 3/4, 4/5 [51524 (CPT )] Start: 02-07-2024 End: 02-07-2024 Njx dx/ther agt pvrt facet jt crv/thrc 1 level INJECTION BLOCK NERVE MEDIAL BRANCH Thoracic spondylosis without myelopathy 02/07/2024 3:15 PM EST [facility] Start: 02-07-2024 Subsequent hospital visit by physician 02/07/2024 3:15 PM EST Hospital Encounter [facility] [address] [place] [phone] Nicholas Tomas MD [address] [place], [place] [phone] [facility] Start: 12-01-2023 COVID-19 Vaccine ( season) COVID-19 Vaccine ( season) [facility] Start: 12-01-2023 COVID-19 Vaccine ( season) COVID-19 Vaccine ( season) [facility] Start: 12-01-2023 Influenza vaccination Influenza Vacc ine [facility] Start: 05-28-2023 End: 05-28-2023 Patient encounter procedure 05/28/2023 8:45 AM EST Office Visit [facility] [address] [place] [phone] Jose Raul Orozco PA [address] [facility] [place] [address] [facility] Start: 11-30-2022 COVID-19 Vaccine ( season) COVID-19 Vaccine () [facility] Start: 11-30-2022 Influenza vaccination Influenza Vacc ine [facility] Start: 07-26-2022 [facility] Start: 2005 DTaP,Tdap and Td Vaccines (1 - Tdap) DTaP,Tdap and Td Vaccines (1 - Tdap) [facility] Payers Date Payer Category Payer Private Health Insurance [id number] 2023 Unknown [id number] 2022 Managed Care, Other (non HMO) [employer] [id number] 2022 Private Health Insurance [employer] [id number] 2022-Present [phone] [address] [place] [address] [id number] 2022 Unknown [id number] 2022 Medicaid [employer] MEDICA[employer] [facility] MEDICAID [id number] 2022-Present [address] [place] [address] [id number] 2022 Medicaid [id number] 2022 Unknown [id number] 1985 Unknown [id number]. 647 1985 Unknown [id number] [id number]. 1258 1985 Unknown [id number] [id number]. 1258 1986 Unknown [id number] [id number]. 1258 1986 Unknown [id number] [id number]. 1258 1986 Unknown [id number] [id number]. 1258 1986 Unknown [id number] [id number]. 1259 1986 Unknown [id number] [id number]. 9 1985 Unknown [id number] [id number]. 1259 1986 Unknown [id number] 2.16.840.1.481700.3.579.2. 9 1985 Unknown [id number] [id number] 1985 Unknown [id number]. 1285 1985 Unknown [id number]. 1285 1985 Unknown [id number] [id number]. 1285 1985 Unknown [id number] [id number]. 1285 1986 Unknown [id number] [id number]. 1285 1986 Unknown [id number] [id number]. 1285 1985 Unknown [id number] [id number]. 1285 1985 Unknown [id number] [id number]. 1285 1986 Unknown [id number]. 128 1959 Self-pay Unknown [id number] Unknown [id number] Unknown [id number]. 593 Social History Date Type Detail Facility Start: 07-30-2022 Tobacco smoking stat [facility] Never smoked tobacco [facility] Start: 07-30-2022 Tobacco use and exposure Smokeless tobacco non-user [facility] Start: 04-23-2023 End: 03-05-2024 Alcohol intake Current drinker of alcohol (finding) [facility] Start: 04-15-2020 End: 04-23-2023 History of Social function [facility] Start: 04-15-2020 End: 04-23-2023 Tobacco use panel [facility] Adolescent depressio n screening assessment 0 [facility] Start: 03-05-2023 Alcohol Comment x3 monthly [facility] Start: 1985 Sex Assigned At Not on file [facility] Start: 11-04-2014 Sex Female (finding) [facility] History of Present illness Narrative 03-05-2024 JOSE He - 03/05/2024 8:15 AM EST Note Date & Type Note Facility 03-05-2024 History of Present illness Narrative [facility] [address] [place] [address] Patient: Jeannie Jones Sex: female : 1985 Age: 39 y.o. PCP: Makayla Willett MD 03/05/2024 Jeannie Jones is here for a(n) post procedure follow up 02/07/2024 Bilateral T3/4, 4/5 Medial Branch Block with 85% relief reported that continues. Date of onset of pain: 08/2022 , pain has lasted greater than 3 months. Pain scale before treatment: 7/10 Pre-op pain score: 6/10 Post-op pain score: 5/10 2 hour post-op pain score: 4/10 4 hour post-op pain score: 3/10 Percentage of relief after and duration: see above Pain scale after treatment: 0/10 currently and up to a 3 intermittently Chief Complaint Patient presents with Back Pain HPI: PT 12/2022 w/min relief 04/05/2022 Bilateral T3/4, 4/5 MBB with 90% relief x 1 hour. 60% relief through Sept 02/07/2024 Bilateral T3/4, 4/5 MBB with 85% relief reported that continues. Back Pain This is a chronic problem. The current episode started more than 1 month ago (08/2022). The problem occurs every several days. The problem has been gradually worsening since onset. The pain is present in the thoracic spine. The quality of the pain is described as cramping, stabbing and burning. The pain does not radiate. The pain is at a severity of 0/10 (3 at times). The patient is experiencing no pain. Worse during: evening after work. The symptoms are aggravated by standing and twisting (lifting, pushing, pulling). Stiffness is present All day. Pertinent negatives include no bladder incontinence, bowel incontinence, chest pain, fever, headaches, leg pain, numbness, tingling or weakness. She has tried NSAIDs and heat (PT 12/2022 w/min relief, naproxen, lido patch) for the symptoms. The treatment provided mild relief. The effect of pain on patient's ADLS: Moderate Impairment. Past Medical History: Diagnosis Date Back pain, thoracic Carpal tunnel syndrome of right wrist Chest pain Chronic pain disorder Constipation Depression Dizziness Endometriosis Gastritis Headache, tension-type Hearing impaired Hypotension Ketonuria Migraine Nabothian cyst Neurocardiogenic syncope Orthostatic hypotension Pain in female genitalia on intercourse Palpitations Scoliosis Sinus tachycardia Syncope and collapse Vitamin D deficiency Past Surgical History: Procedure Laterality Date INJECTION BLOCK NERVE MEDIAL BRANCH: bilat T 3/4, 4/5 Bilateral 04/05/2023 Performed by Nicholas Tomas MD at [facility] INJECTION BLOCK NERVE MEDIAL BRANCH: bilat T 3/4, 4/5 Bilateral 02/07/2024 Performed by Nicholas Tomas MD at [facility] TUBAL LIGATION Allergies Allergen Reactions Penicillins Other reaction(s): Intolerance-unknown Family History Problem Relation Age of Onset Diabetes Mother Hypertension Mother Diabetes Father Hyperlipidemia Father Stroke Sister Breast cancer Neg Hx Social History Socioeconomic History Marital status: Spouse name: Not on file Number of children: Not on file Years of education: Not on file Highest education level: Not on file Occupational History Not on file Tobacco Use Smoking status: Never Smokeless tobacco: Never Vaping Use Vaping status: Never Used Substance and Sexual Activity Alcohol use: Yes Comment: x3 monthly Drug use: No Sexual activity: Defer Other Topics Concern Caffeine Use Yes Social History Narrative Not on file Social Drivers of Health Financial Resource Strain: Not on file Food Insecurity: No Food Insecurity (03/05/2024) Hunger Screening Food Insecurity - Worry: Never True Food Insecurity - Inability: Never True Transportation Needs: Not on file Physical Activity: Not on file Stress: Not on file Social Connections: Not on file Interpersonal Safety: Not on file Housing Instability: Not on file Review of Systems Constitutional: Negative. Negative for chills, fatigue and fever. HENT: Negative. Eyes: Negative. Respiratory: Negative. Negative for cough and shortness of breath. Cardiovascular: Negative. Negative for chest pain. Gastrointestinal: Negative. Negative for bowel incontinence. Endocrine: Negative. Genitourinary: Negative. Negative for bladder incontinence. Musculoskeletal: Positive for back pain. Negative for gait problem. Skin: Negative. Negative for wound. Allergic/Immunologic: Negative. Neurological: Negative. Negative for tingling, weakness, numbness and headaches. Hematological: Negative. Does not bruise/bleed easily. Psychiatric/Behavioral: Negative. Negative for self-injury and suicidal ideas. Vital Signs: BP (!) 129/36 Pulse 73 Resp 18 Ht 157.5 cm (5' 2 ) Wt 61.7 kg (136 lb) LMP 02/14/2024 (Exact Date) SpO2 99% BMI 24.87 kg/m Physical Exam: GENERAL - Healthy patient that appears stated age. HEENT - Normocephalic / Atraumatic, Extraoccular movements intact, trachea midline, thyroid within normal limits. CV - pulse regular, Warm extremities with appropriate color of nailbeds. RESP - No obvious wheezing, No Shortness of Breath, No overexertion response to exam maneuvers. COORDINATION - remains intact. PSYCH - Alert and Oriented x4, Attentive and appropriate, constitutionally normal, displays normal mood and affect per situation, answered questions appropriately during examination, demonstrated appropriate attention during discussion, demonstrated appropriate cognitive reasoning and understanding of the medical condition by asking appropriate questions regarding the diagnosis and risks/benefits/alternatives of treatment modalities. No obvious deficits in memory, reasoning, or intellect. Thoracic: SKIN - No rashes or bruising in the area of the patient s pain. LYMPH NODES - demonstrate no obvious enlargement. EXTREMITIES - Extremities are warm, with minimal edema and palpable pulses. Tenderness to palpation noted in the thoracic spine and paraspinal musculature. Pain is elicited with flexion, extension, and lateral rotation of the thoracic spine. Range of motion is diminished with these motions due to pain. Facet palpation is noted to be somewhat tender but not concordant with the patient s normal pain complaints. STRENGTH - noted to be 5 out of 5 all muscle groups bilateral upper and lower extremities. No notable atrophy, fasciculations or spasm. SENSORY - No notable sensory deficits in the thoracic dermatomal distributions. Gait is normal. Assessment/Treatment Plan: Jeannie was seen today for back pain. Diagnoses and all orders for this visit: Thoracic spondylosis without myelopathy MONITOR Follow up as needed The medications prescribed have been reviewed for medication interactions/contraindications and/or for upcoming procedures: continue current medication regimen without any changes. DISCUSSION: Treatment options discussed with patient and all questions answered to patient's satisfaction. Discussed the rules and regulations surrounding prescription of opioids and compliance at length. Failure to follow the rules and regulation will result in tapering and discontinuation of medications if applicable. Prescribed medication that requires intensive monitoring for toxicity We do not currently prescribe any controlled substance from this practice. Treatment plans discussed but not opted for at this time: Thoracic Radiofrequency Ablation. Pain is under adequate control. It does appear that the patient benefited from the previous injection and the benefit has continued through this visit. At this time, we will monitor the patient s symptoms from an interventional standpoint and consider another injection in the future if the patient s symptoms return or intensify severely. The patient was made aware that they should call if symptoms worsen or if their pain begins to have a negative impact on their quality of life and activities of daily living again. The spine model was demonstrated and Xray and MRI was reviewed and used to explain the condition. OARRS: Reviewed. Scribe Statement: Scribed for and in the presence of JOSE HE by Charmaine Villafana RN. Provider Statement: I, JOSE HE, personally performed the services described in the documentation, as scribed by Charmaine Villafana RN in my presence, and it is both accurate and complete. Charmaine Villafana RN 03/05/24 6520 JOSE He 03/05/24 0944 documented in this encounter [facility] History of Present illness Narrative 01-16-2024 JOSE He - 01/16/2024 2:30 PM EDT Note Date & Type Note Facility 01-16-2024 History of Present illness Narrative [facility] [address] [place] [address] Patient: Jeannie Jones Sex: female : 1985 Age: 38 y.o. PCP: Makayla Willett MD 01/16/2024 Jeannie Jones is here for a(n) follow up with increased pain. Patient had bilateral T 3/4 4/5 medial branch block in April of this year. Patent reports her pain returned 2 weeks ago. Chief Complaint Patient presents with Back Pain Thoracic spine HPI: PT 12/2022 w/min relief 04/05/2022 Bilateral T3/4, 4/5 MBB with 90% relief x 1 hour. 60% relief through Sept Back Pain This is a chronic problem. The current episode started more than 1 month ago (08/2022). The problem occurs every several days. The problem has been gradually worsening since onset. The pain is present in the thoracic spine. The quality of the pain is described as cramping, stabbing and burning. The pain does not radiate. The pain is at a severity of 7/10. The pain is moderate. Worse during: evening after work. The symptoms are aggravated by standing and twisting (lifting, pushing, pulling). Stiffness is present All day. Pertinent negatives include no chest pain, fever, headaches, leg pain, numbness, tingling or weakness. She has tried NSAIDs and heat (PT 12/2022 w/min relief, naproxen, lido patch) for the symptoms. The treatment provided mild relief. The effect of pain on patient's ADLS: Mild Impairment. Past Medical History: Diagnosis Date Back pain, thoracic Carpal tunnel syndrome of right wrist Chest pain Constipation Depression Dizziness Endometriosis Gastritis Headache, tension-type Hearing impaired Hypotension Ketonuria Migraine Nabothian cyst Neurocardiogenic syncope Orthostatic hypotension Pain in female genitalia on intercourse Palpitations Scoliosis Sinus tachycardia Syncope and collapse Vitamin D deficiency Past Surgical History: Procedure Laterality Date INJECTION BLOCK NERVE MEDIAL BRANCH: bilat T 3/4, 4/5 Bilateral 04/05/2023 Performed by Nicholas Tomas MD at [facility] TUBAL LIGATION Allergies Allergen Reactions Penicillins Other reaction(s): Intolerance-unknown Family History Problem Relation Age of Onset Diabetes Mother Hypertension Mother Diabetes Father Hyperlipidemia Father Stroke Sister Breast cancer Neg Hx Social History Socioeconomic History Marital status: Spouse name: Not on file Number of children: Not on file Years of education: Not on file Highest education level: Not on file Occupational History Not on file Tobacco Use Smoking status: Never Smokeless tobacco: Never Vaping Use Vaping status: Never Used Substance and Sexual Activity Alcohol use: Yes Comment: x3 monthly Drug use: No Sexual activity: Defer Other Topics Concern Caffeine Use Yes Social History Narrative Not on file Social Drivers of Health Financial Resource Strain: Not on file Food Insecurity: No Food Insecurity (01/16/2024) Hunger Screening Food Insecurity - Worry: Never True Food Insecurity - Inability: Never True Transportation Needs: Not on file Physical Activity: Not on file Stress: Not on file Social Connections: Not on file Interpersonal Safety: Not on file Housing Instability: Not on file Review of Systems Constitutional: Negative. Negative for fever. HENT: Negative. Eyes: Negative. Respiratory: Negative. Cardiovascular: Negative. Negative for chest pain. Gastrointestinal: Negative. Endocrine: Negative. Genitourinary: Negative. Musculoskeletal: Positive for back pain. Skin: Negative. Allergic/Immunologic: Negative. Neurological: Negative. Negative for tingling, weakness, numbness and headaches. Hematological: Negative. Psychiatric/Behavioral: Negative. Vital Signs: BP 107/67 Pulse 78 Resp 18 Ht 157.5 cm (5' 2 ) Wt 61.7 kg (136 lb) SpO2 100% BMI 24.87 kg/m Physical Exam: GENERAL - Healthy patient that appears stated age. HEENT - Normocephalic / Atraumatic, Extraoccular movements intact, trachea midline, thyroid within normal limits. CV - pulse regular, Warm extremities with appropriate color of nailbeds. RESP - No obvious wheezing, No Shortness of Breath, No overexertion response to exam maneuvers. COORDINATION - remains intact. PSYCH - Alert and Oriented x4, Attentive and appropriate, constitutionally normal, displays normal mood and affect per situation, answered questions appropriately during examination, demonstrated appropriate attention during discussion, demonstrated appropriate cognitive reasoning and understanding of the medical condition by asking appropriate questions regarding the diagnosis and risks/benefits/alternatives of treatment modalities. No obvious deficits in memory, reasoning, or intellect. Thoracic: SKIN - No rashes or bruising in the area of the patient s pain. LYMPH NODES - demonstrate no obvious enlargement. COORDINATION remains intact. EXTREMITIES - Extremities are warm, with minimal edema and palpable pulses. Tenderness to palpation noted in the thoracic spine and paraspinal musculature. Pain is elicited with flexion, extension, and lateral rotation of the thoracic spine. Range of motion is diminished with these motions due to pain. Facet palpation is noted to be painful and facet loading maneuvers elicit pain that is concordant with the patient s normal pain complaints. Some muscle spasm is noted in the overlying musculature. STRENGTH - noted to be 5 out of 5 all muscle groups bilateral upper and lower extremities. No notable atrophy, fasciculations or spasm. SENSORY - No notable sensory deficits in the thoracic dermatomal distributions to touch or pinprick. Assessment/Treatment Plan: Jeannie was seen today for back pain. Diagnoses and all orders for this visit: Thoracic spondylosis without myelopathy - Case request operating room: INJECTION BLOCK NERVE MEDIAL BRANCH: bilmadan T34 45 Bilateral Thoracic T3/4 4/5 Facet Injection/Medial Branch Block - under fluoroscopy It is hopeful that the described procedure will provide symptomatic pain relief. It is felt to be medically necessary noting that the patient has tried and failed more conservative modalities of therapy and this is the next most appropriate step. The procedure was described in detail to the patient as well as the potential benefits of pain reduction alongside risks of the procedure and alternatives. Risks were described as including, but not limited to bleeding, infection, nerve damage, spinal cord injury, paralysis, stroke, dural puncture headache, and medication reaction. The patient expressed understanding regarding the risks and benefits and wishes to proceed. Diagnostic facet injections and medial branch blocks should provide information to confirm that the noted facet arthropathy is the patient s most significant pain generator. If this provides significant but only temporary pain relief, the patient may in the future be a candidate for radiofrequency denervation of the facet joints to provide pain relief for approximately 1 year. Return for follow up 2 weeks after procedure. The medications have been reviewed for medication interactions/contraindications and/or for upcoming procedures: continue current medication regimen without any changes. DISCUSSION: Treatment options discussed with patient and all questions answered to patient's satisfaction. Discussed the rules and regulations surrounding prescription of opioids and compliance at length. Failure to follow the rules and regulation will result in tapering and discontinuation of medications if applicable. Prescribed medication that requires intensive monitoring for toxicity We do not currently prescribe any controlled substance from this practice. Treatment plans discussed but not opted for at this time: Thoracic RFA. Patient would like to proceed with the current outlined treatment plan before moving forward with any other options. It is noted that the patient did have good response from the previously performed procedure. It is felt that the patient would benefit from an additional procedure of the same nature in that the same symptoms have returned. It is hopeful that this additional injection will provide additional benefit and duration when combined with the previous injection. The spine model was demonstrated and MRI was reviewed and used to explain the condition. OARRS: Reviewed. Scribe Statement: Scribed for and in the presence of JOSE HE by Charmaine Villafana RN. Provider Statement: I, JOSE HE, personally performed the services described in the documentation, as scribed by Charmaine Villafana RN in my presence, and it is both accurate and complete. Charmaine Villafana RN 01/16/24 1517 JOSE He 01/21/24 0844 [facility] 01-16-2024 Patient Instructions Note Date & Type Note Facility 01-16-2024 Instructions Charmaine Villafana RN - 01/16/2024 2:30 PM EDT Facet Injection / Medial Branch Block (MBB) / Sacroiliac (SI) Joint Injection / Cluneal NB A facet injection and sacroiliac joint injection are injections of local anesthetic and steroid into a joint in the spine. A medial branch block is similar, but the medication is placed outside the joint space near the nerve that supplies the joint called the medial branch (steroid may or may not be used). You may require multiple injections depending upon how many joints are involved. How Long Will This Procedure Last? The extent and duration of pain relief may depend on the amount of inflammation and how many areas are involved. Other coexisting factors may be responsible for your pain. If your pain goes away for a short time, but then returns, you may be a candidate for radiofrequency ablation (RFA). Activity Be active. Attempt activities and movements that typically cause pain to see if it feels better while doing them. We will give you a pain diary. Please fill this out as directed by your nurse in pre-op. This will help your doctor determine the effectiveness of the injection, and how to proceed. Bring the pain diary with you to your follow-up appointment. Medications You should not take your pain medications for 4-6 hours before or after the injection in order to properly diagnose if the injection provides adequate relief. Resume your routine medications after your procedure. You may resume blood thinners per your regular schedule after the procedure. If you received sedation: If you received sedation for your procedure, you may feel sleepy or not yourself for several hours today. For the next 24 hours avoid activities that requires alertness or coordination. This includes: Driving or operating heavy machinery Using power tools Consuming alcohol Do not make important or complex decisions or sign legal documents in the next 24 hours. Other Instructions: If you feel severe pain at the injection site with swelling and redness, increased leg weakness, a fever of 101 or higher, headache (or worsening headache), changes in vision or urinary retention: Please call the office at , or have someone take you to the nearest emergency room. Tell the emergency room staff that you recently had a spine injection. A doctor must evaluate you for bleeding and injection complications. If you lose control over bowel, bladder, or legs: Go to the nearest emergency room. documented in this encounter [facility] History of Present illness Narrative 04-23-2023 JOSE He - 04/23/2023 11:15 AM EST Note Date & Type Note Facility 04-23-2023 History of Present illness Narrative [facility] [address] [place] [address] Patient: Jeannie Jones Sex: female : 1985 Age: 38 y.o. PCP: Makayla Fischer MD 04/23/2023 Jeannie Jones is here for a(n) post procedure follow up 04/05/2023 Bilateral T3/4, 4/5 Medial Branch Block with 90% relief x1 hour and 60% continued relief. Chief Complaint Patient presents with Back Pain HPI: PT 12/2022 w/min relief 04/05/2022 Bilateral T3/4, 4/5 MBB with 90% relief x 1 hour. 60% relief still today Back Pain This is a chronic problem. The current episode started more than 1 month ago (08/2022). The problem occurs intermittently. The problem is unchanged. The pain is present in the thoracic spine. The quality of the pain is described as cramping and stabbing. The pain does not radiate. The pain is at a severity of 3/10. The pain is moderate. Worse during: evening after work. The symptoms are aggravated by standing and twisting (lifting, pushing, pulling). Stiffness is present All day. Pertinent negatives include no chest pain, fever, headaches, leg pain, numbness, tingling or weakness. She has tried NSAIDs and heat (PT 12/2022 w/min relief, naproxen, lido patch) for the symptoms. The treatment provided mild relief. The effect of pain on patient's ADLS: Moderate Impairment. Past Medical History: Diagnosis Date Back pain, thoracic Carpal tunnel syndrome of right wrist Chest pain Constipation Depression Dizziness Endometriosis Gastritis Headache, tension-type Hearing impaired Hypotension Ketonuria Migraine Nabothian cyst Neurocardiogenic syncope Orthostatic hypotension Pain in female genitalia on intercourse Palpitations Scoliosis Sinus tachycardia Syncope and collapse Vitamin D deficiency Past Surgical History: Procedure Laterality Date INJECTION BLOCK NERVE MEDIAL BRANCH: bilat T 3/4, 4/5 Bilateral 04/05/2023 Performed by Nicholas Tomas MD at [facility] TUBAL LIGATION Allergies Allergen Reactions Penicillins Other reaction(s): Intolerance-unknown Family History Problem Relation Age of Onset Diabetes Mother Hypertension Mother Diabetes Father Hyperlipidemia Father Stroke Sister Breast cancer Neg Hx Social History Socioeconomic History Marital status: Spouse name: Not on file Number of children: Not on file Years of education: Not on file Highest education level: Not on file Occupational History Not on file Tobacco Use Smoking status: Never Smokeless tobacco: Never Vaping Use Vaping Use: Never used Substance and Sexual Activity Alcohol use: Yes Comment: x3 monthly Drug use: No Sexual activity: Defer Other Topics Concern Caffeine Use Yes Social History Narrative Not on file Social Determinants of Health Financial Resource Strain: Not on file Food Insecurity: No Food Insecurity (04/23/2023) Hunger Screening Food Insecurity - Worry: Never True Food Insecurity - Inability: Never True Transportation Needs: Not on file Physical Activity: Not on file Stress: Not on file Social Connections: Not on file Interpersonal Safety: Not on file Housing Instability: Not on file Review of Systems Constitutional: Negative for fever. HENT: Negative. Eyes: Negative. Respiratory: Negative. Cardiovascular: Negative for chest pain. Gastrointestinal: Negative. Endocrine: Negative. Genitourinary: Negative. Musculoskeletal: Positive for back pain. Skin: Negative. Neurological: Negative for tingling, weakness, numbness and headaches. Vital Signs: BP 102/62 (BP Site: Right Arm, BP Postition: Sitting) Pulse 86 Resp 18 Ht 157.5 cm (5' 2 ) Wt 56.2 kg (124 lb) SpO2 99% BMI 22.68 kg/m Physical Exam: GENERAL - Healthy patient that appears stated age. HEENT - Normocephalic / Atraumatic, Extraoccular movements intact, trachea midline, thyroid within normal limits. CV - pulse regular, Warm extremities with appropriate color of nailbeds. RESP - No obvious wheezing, No Shortness of Breath, No overexertion response to exam maneuvers. COORDINATION - remains intact. PSYCH - Alert and Oriented x4, Attentive and appropriate, constitutionally normal, displays normal mood and affect per situation, answered questions appropriately during examination, demonstrated appropriate attention during discussion, demonstrated appropriate cognitive reasoning and understanding of the medical condition by asking appropriate questions regarding the diagnosis and risks/benefits/alternatives of treatment modalities. No obvious deficits in memory, reasoning, or intellect. Thoracic: SKIN - No rashes or bruising in the area of the patient s pain. LYMPH NODES - demonstrate no obvious enlargement. EXTREMITIES - Extremities are warm, with minimal edema and palpable pulses. Tenderness to palpation noted in the thoracic spine and paraspinal musculature. Pain is elicited with flexion, extension, and lateral rotation of the thoracic spine. Range of motion is diminished with these motions due to pain. Facet palpation is noted to be somewhat tender but not concordant with the patient s normal pain complaints. STRENGTH - noted to be 5 out of 5 all muscle groups bilateral upper and lower extremities. No notable atrophy, fasciculations or spasm. SENSORY - No notable sensory deficits in the thoracic dermatomal distributions Assessment/Treatment Plan: Jeannie was seen today for back pain. Diagnoses and all orders for this visit: Thoracic spondylosis without myelopathy Monitor Follow up 4-6 weeks The medications prescribed have been reviewed for medication interactions/contraindications and/or for upcoming procedures: continue current medication regimen without any changes. DISCUSSION: Treatment options discussed with patient and all questions answered to patient's satisfaction. Discussed the rules and regulations surrounding prescription of opioids and compliance at length. Failure to follow the rules and regulation will result in tapering and discontinuation of medications if applicable. Prescribed medication that requires intensive monitoring for toxicity We do not currently prescribe any controlled substance from this practice. Treatment plans discussed but not opted for at this time: Repeat Thoracic medial branch block injection and RFA. Pain is under adequate control. It does appear that the patient benefited from the previous injection and the benefit has continued through this visit. At this time, we will monitor the patient s symptoms from an interventional standpoint and consider another injection in the future if the patient s symptoms return or intensify severely. The patient was made aware that they should call if symptoms worsen or if their pain begins to have a negative impact on their quality of life and activities of daily living again. The spine model was demonstrated and MRI was reviewed and used to explain the condition. OARRS: Reviewed. Scribe Statement: Scribed for and in the presence of JOSE HE by Anjali Douglass CNA. Provider Statement: I, JOSE HE, personally performed the services described in the documentation, as scribed by Anjali Douglass CNA in my presence, and it is both accurate and complete. Anjali Douglass CNA 04/23/23 1211 JOSE He 04/23/23 1403 documented in this encounter [facility] Evaluation note Note Date & Type Note Facility Evaluation note Diagnosis Thoracic spondylosis without myelopathy- Primary documented in this encounter [facility] Evaluation note Note Date & Type Note Facility Evaluation note Diagnosis Thoracic spondylosis without myelopathy- Primary Thoracic spondylosis without myelopathy- Primary Thoracic spondylosis without myelopathy documented in this encounter [facility] Evaluation note Note Date & Type Note Facility Evaluation note Diagnosis Thoracic spondylosis without myelopathy- Primary documented in this encounter [facility] Instructions Note Date & Type Note Facility Instructions Not on filedocumented in this en counter [facility] Instructions Note Date & Type Note Facility Instructions Not on filedocumented in this en counter [facility] Summary Purpose Family History No Family History Records FoundNo Family History Records FoundNo Family History Records FoundNo Family History Records Found Advance Directives No Advanced Directives Records FoundNo Advanced Directives Records FoundNo Advanced Directives Records FoundNo Advanced Directives Records Found Additional Source Comments INFORMATION SOURCE (unrecogn ized section and content) DATE CREATED AUTHOR 08/15/2019 [facility] DATE CREATED AUTHOR AUTHOR'S ORGANIZ ATION 02/19/2020 [facility] DATE CREATED AUTHOR AUTHOR'S ORGANIZ ATION 01/19/2024 [facility] EPIC DATE CREATED AUTHOR AUTHOR'S ORGANIZ ATION 02/28/2024 [facility] Reason for Visit (unrecogniz ed section and content) Reason Comments Back Pain Reason Comments Back Pain Thoracic spine Care Teams (unrecognized sec tion and content) [employer] Relationship Specialty Start Date End Date Makayla Fischer MD [address] [place] [address] PCP - General Family Medicine 10/06/16 [employer] Relationship Specialty Start Date End Date Makayla Willett MD [address] [facility] [place] [address] PCP - General Family Medicine 05/21/23 [employer] Relationship Specialty Start Date End Date Makayla Willett MD [address] [facility] [place] [address] PCP - General Family Medicine 05/21/23 FOR RECORDS PERTAINING TO PATIENTS WHO ARE OR HAVE BEEN ENROLLED IN A CHEMICAL DEPENDENCY/SUBSTANCEABUSE PROGRAM, SOME INFORMATION MAY BE OMITTED. This clinical summary was aggregated from multiple sources. Caution should be exercised in using it in the provision of clinical care. This summary normalizes information from multiple sources, and as a consequence, information in this document may materially change the coding, format and clinical context of patient data. In addition, data may be omitted in some cases. CLINICAL DECISIONS SHOULD BE BASED ON THE PRIMARY CLINICAL RECORDS. [employer] provides no warranty or guarantee of the accuracy or completeness of information in this document.
--- NOTE | 2024-12-25 07:55 | XR_ITS ---
The [address] [address] Patient Name: JEANNIE JONES MRN: [id number] date: 1985 Sex: F Assigned Patient Location: [facility] Current Patient Location: [facility] Accession/Order Number: [id number] Exam Date: 12/25/2024 08:05 Report Date: 12/25/2024 08:41 At the request of: KYLE GARCIA Procedure: XR wrist LT min 3V LEFT WRIST - 3 views COMPARISON: None CLINICAL DATA: Left wrist pain at work last week radiating to forearm. No injury. AP, lateral and oblique views were obtained. There is no acute fracture or dislocation. No soft tissue abnormalities are seen. XR/XR wrist LT min 3V IMPRESSION: NO ACUTE BONY FINDINGS. Impression dictated by: Precious Avila M.D. 12/25/2024 8:41 AM Dictation Location: [place] [address] Electronically authenticated by: [id number] Y Date: 12/25/2024 08:41
== END 2024-12-25 07:45 | disposition home or self-care (01) ==
PROVIDERS: Visit Provider Physician Assistant
DX: M25.832 Other specified joint disorders, left wrist (principal)
CPT/HCPCS: 73110